=== PATIENT | male | born 1950 | race Caucasian/White ===

== ENCOUNTER 2019-08-31 06:44 | Outpatient (CLI) | payer MEDICARE, BC ==
[2019-08-31 10:43] LABS: #Eosinphils 0.2 thou/uL (0.0-0.7); #Lymphocytes 1.8 thou/uL (1.20-3.40); #Monocytes 0.7 thou/uL (0.11-0.59); #Neutrophils 3.1 thou/uL (1.40-6.50); %Basophils 0.8 % (0.0-1.0); %Eosinophils 2.7 % (0.0-10.0); %Lymphocytes 31.2 % (21.0-51.0); %Monocytes 11.3 % (0.0-10.0); %Neutrophils 54.1 % (42.0-75.0); Hemoglobin 15.5 g/dL (14.0-18.0); Mean Corpuscular HGB CONC 33.5 g/dL (32.0-36.0); Mean Corpuscular Hemoglobin 31.7 pg (27.0-31.0); Mean Corpuscular Volume 94.5 fL (78.0-98.0); Mean Platelet Volume 8.3 fL (7.4-10.4); Platelet Count 182 thou/uL (130-400); RBC Distribution Width 11.5 % (11.5-14.5); White Blood Cell (WBC) Count 5.8 thou/uL (4.8-10.8)
[2019-08-31 11:19] LABS: Anion Gap 13 mmol/L (10-20); BUN (Urea Nitrogen) 13 mg/dL (8.4-25.7); Calc. Creatinine Clearance 0 mL/min (70-130); Calcium 9.9 mg/dL (7.8-10.44); Carbon Dioxide 27 mmol/L (23-31); Chloride 102 mmol/L (98-107); Estimated GFR-MDRD 88; Glucose 106 mg/dL (80-115); Potassium 5.1 mmol/L (3.5-5.1); Sodium 137 mmol/L (136-145)
--- NOTE | 2019-08-31 12:06 | RAD ---
PA AND LATERAL VIEWS CHEST: Date: 08/31/19 HISTORY: Preoperative evaluation. FINDINGS: The heart size is normal. The lungs are expanded without lobar consolidation, pneumothoraces, or pleu ral effusions. There are degenerative changes in the spine. IMPRESSION: No radiographic evidence of acute cardiopulmonary process. POS: JEAN
--- NOTE | 2019-09-06 12:35 | EKG ---
Test Reason : Blood Pressure : / mmHG Vent. Rate : 071 BPM Atrial Rate : 071 BPM P-R Int : 138 ms QRS Dur : 092 ms QT Int : 372 ms P-R-T Axes : 081 084 030 degrees QTc Int : 404 ms Sinus rhythm with occasional Premature ventricular complexes Otherwise normal ECG No previous ECGs available Confirmed by HORTENCIA HUANG ([id number]) on 09/06/2019 12:34:46 PM Referred By: NEW Confirmed By:HORTENCIA HUANG
== END 2019-08-31 06:45 | disposition home or self-care (01) ==
LOC: LABBT 06:44
PROVIDERS: ATTEND Specialist
DX: Z01.818 Encounter for other preprocedural examination (principal); K40.20 Bilateral inguinal hernia, without obstruction or gangrene, not specified as recurrent
CPT/HCPCS: 71046; 80048; 85025; 93005; 93010

== ENCOUNTER 2019-09-03 11:34 | Day surgery (SDC) | payer MEDICARE, BC ==
[2019-08-31 10:07] VITALS: BMI 25.7
[~2019-09-03 11:34] MED LIST: Dexamethasone 20 MG/5 ML VIAL ONE; Glycopyrrolate 0.2 MG/ML 5 ML SYRINGE ONE; Lidocaine 1% PF 5 ML VIAL ONE; Ondansetron PF 4 MG/2 ML Vial ONE; PROPOFOL 200 MG/20 ML VIAL ONE; Rocuronium Bromide 10 MG/ML (10ML VIAL) ONE; ePHEDrine/0.9% NaCl/PF SYRINGE 50 mg/10 ml ONE
[2019-09-03] MEDS ORDERED: Ketorolac Tromethamine 30 MG/ML VIAL ONE (12:13)
[2019-09-03] MEDS ORDERED: Bupivacaine PF 0.5% 30 ML VIAL ONE (13:03)
[2019-09-03] MEDS ORDERED: Fentanyl 100 MCG/2 ML VIAL ONE ×2 (13:16→14:16)
[2019-09-03] MEDS ORDERED: Midazolam HCl 2 mg/2 ml Vial ONE (13:16)
[2019-09-03] MEDS ORDERED: Lidocaine 1% w/Epinephrine 1:100K 20 ML VIAL ONE (14:04)
--- NOTE | 2019-09-04 12:52 | OP ---
DATE OF PROCEDURE: 09/03/2019 PREOPERATIVE DIAGNOSIS: Bilateral inguinal hernia. POSTOPERATIVE DIAGNOSIS: Bilateral inguinal hernia with finding of a large right indirect inguinal hernia and a smaller left indirect inguinal hernia with a large left-sided cord lipoma. PROCEDURES PERFORMED: Bilateral inguinal hernia repair using the [employer] robot. ANESTHESIA: General endotracheal. INDICATIONS: Patient is a 68-year-old white male. He presented with a large right inguinal hernia extending down into the scrotum. This was reducible. On examination, he also had a palpable but significantly smaller left inguinal hernia. He was taken to the operating room at this time for robotic repair of bilateral inguinal hernia. DESCRIPTION OF OPERATION: Informed consent was obtained. Patient was taken to the operating room, where general endotracheal anesthesia was obtained, patient in supine position. Abdomen was prepped and draped in sterile fashion. Jose catheter was placed. Local anesthetic was infiltrated using a mixture of lidocaine with epinephrine and Marcaine. An 11 mm supraumbilical incision was created through which a Veress needle was passed in the peritoneal cavity pneumoperitoneum established using carbon dioxide up to a pressure of 15 mmHg. An 11 mm balloon tipped trocar port was passed into the abdominal cavity. Camera was passed this port. Under direct vision, I placed 2 additional 8 mm robotic ports on either side of midline at the supraumbilical level. The robot was docked to the ports and the camera and the operation was continued from the robotic console. Examination within the pelvis revealed a large easily identified indirect hernia on the right side. On the left side, there was a much smaller indirect defect. Attention was turned first to the right side. A transverse peritoneal incision was created and dissection was carried inferiorly in the preperitoneal space. I dissected the pubic tubercle and Nikolai ligament medially and laterally. I cleared the iliopubic tract. In the central portion, I had a lengthy dissection of the peritoneum and the hernia sac away from the cord structures. As this was a very large sac, the dissection was fairly lengthy and meticulous. Hemostasis was maintained as necessary with electrocautery. When the entire sac was reduced, the preperitoneal space was widely dissected. A 3DMax mesh patch was obtained and placed in the preperitoneal space. It was secured in place with 2 interrupted sutures of 3-0 Vicryl, one to the pubic tubercle and one to the anterior aspect of the abdominal wall lateral to the epigastric vessels. The peritoneum was then closed with a running suture of 3-0 Stratafix. Attention was turned to the left side. A mirror image incision and dissection was carried out. The peritoneum was much easier to dissect as the hernia sac was much smaller. Upon visualizing the indirect space, there was a large cord lipoma bulging through this. This was carefully dissected from within the hernia defect and away from the cord structures. It was then mobilized posteriorly. The mesh was placed in a similar fashion. The peritoneum was closed also with 3-0 Stratafix, however, the closure also incorporated the cord lipoma. The fascial defect at the supraumbilical port site was closed with 0 Vicryl suture using a GraNee needle. All ports and instruments were removed under direct vision. Pneumoperitoneum was carefully evacuated. 0.25% Marcaine with epinephrine was infiltrated in each port site. Skin edges approximated with 4-0 Monocryl subcuticular suture and Dermabond was placed externally. There were no complications. Patient tolerated the procedure well and was taken to recovery room in stable condition. Job ID: [id number]
== END 2019-09-03 21:00 | disposition home or self-care (01) ==
LOC: SDC 11:34
PROVIDERS: ATTEND Specialist
PROC: 0YUA4JZ Supplement Bilateral Inguinal Region with Synthetic Substitute, Percutaneous Endoscopic Approach (ICD-10-PCS; principal; 2019-09-03)
DX: K40.20 Bilateral inguinal hernia, without obstruction or gangrene, not specified as recurrent (principal); D17.6 Benign lipomatous neoplasm of spermatic cord; I10 Essential (primary) hypertension; N40.0 Benign prostatic hyperplasia without lower urinary tract symptoms; Z79.899 Other long term (current) drug therapy
CPT/HCPCS: 49650; 51798; C1781; J0131; J0690; J1100; J1885; J2001; J2250; J2405; J2704; J3010; S0020

== ENCOUNTER 2020-01-10 11:10 | Emergency (ER) | payer MEDICARE, BC ==
[2020-01-10 11:58] LABS: #Lymphocytes 0.5 thou/uL (1.20-3.40); #Monocytes 0.8 thou/uL (0.11-0.59); #Neutrophils 13.6 thou/uL (1.40-6.50); %Basophils 0.1 % (0.0-1.0); %Monocytes 5.4 % (0.0-10.0); %Neutrophils 91.5 % (42.0-75.0); Hemoglobin 15.8 g/dL (14.0-18.0); Mean Corpuscular HGB CONC 34.7 g/dL (32.0-36.0); Mean Corpuscular Hemoglobin 32.1 pg (27.0-31.0); Mean Corpuscular Volume 92.5 fL (78.0-98.0); Mean Platelet Volume 8.4 fL (7.4-10.4); Platelet Count 161 thou/uL (130-400); RBC Distribution Width 11.8 % (11.5-14.5); Red Blood Cell (RBC) Count 4.93 mill/uL (4.70-6.10); White Blood Cell (WBC) Count 14.9 thou/uL (4.8-10.8)
[2020-01-10 12:17] LABS: Anion Gap 18 mmol/L (10-20); BUN (Urea Nitrogen) 18 mg/dL (8.4-25.7); Calc. Creatinine Clearance 0 mL/min (70-130); Calcium 10.7 mg/dL (7.8-10.44); Carbon Dioxide 22 mmol/L (23-31); Chloride 98 mmol/L (98-107); Estimated GFR-MDRD 52; Glucose 146 mg/dL (80-115); Sodium 134 mmol/L (136-145)
[2020-01-10 12:24] LABS: Bacteria/HPF None Seen HPF (None Seen); Bilirubin Negative (Negative); Blood, Urine 2+ (Negative); Clarity Clear (Clear); Glucose, Urine (Dipstick) Normal (Negative); Leukocyte Negative Leu/uL (Negative); Nitrite Negative (Negative); Protein, Urine (Dipstick) Negative (Neg-Trace); RBC/HPF 0-3 HPF (0-3); Squamous Epithelial None Seen HPF (0-3); Urobilinogen Normal mg/dL (Less than 2); WBC/HPF 0-3 HPF (0-3)
== END 2020-01-10 12:54 | disposition home or self-care (01) ==
LOC: ERS 11:10
DX: R33.9 Retention of urine, unspecified (principal); N40.1 Benign prostatic hyperplasia with lower urinary tract symptoms; I10 Essential (primary) hypertension; Z79.899 Other long term (current) drug therapy
CPT/HCPCS: 36415; 51702; 80048; 81003; 81015; 85025; 87086